=== PATIENT | female | born 1965 | race Caucasian/White ===

== ENCOUNTER 2019-02-04 19:22 | Emergency (ER) | payer BC ==
[~2019-02-04] VITALS: Ht 167.6 cm; Wt 72.6 kg
[2019-02-04 19:41] VITALS: Ht 167.6 cm; Wt 72.6 kg
[2019-02-04] MEDS ORDERED: METOPROLOL TART25 MG PO (19:41)
[2019-02-04] MEDS ORDERED: PRAVACHOL40 MG PO (19:41)
[2019-02-04] MEDS ORDERED: PROZAC20 MG PO (19:42)
[2019-02-04] MEDS ORDERED: EC-NAPROSYN500 MG PO (21:20)
[2019-02-04] MEDS ORDERED: CYCLOBENZAPRINE10 MG PO (21:20)
[2019-02-04 21:31] VITALS: BP 113/82
== END 2019-02-04 21:31 | disposition home or self-care (01) ==
LOC: D.ER 19:22
DX: S00.83XA Contusion of other part of head, initial encounter (principal); W17.89XA Other fall from one level to another, initial encounter; Y93.89 Activity, other specified; Y92.89 Other specified places as the place of occurrence of the external cause; T14.8XXA Other injury of unspecified body region, initial encounter